=== PATIENT | female | born 1975 | race Caucasian/White ===

== ENCOUNTER → 2016-05-05 | Outpatient (REF) | payer OTHER ==
[2016-05-05 17:09] LABS: FREE T4 1.11 NG/DL (0.76-1.46)
== END | disposition home or self-care (01) ==
LOC: M SFHCCLAY 09:56
PROVIDERS: ATTEND Family Medicine
DX: E03.9 Hypothyroidism, unspecified (principal)

== ENCOUNTER → 2016-05-07 | Outpatient (REF) | payer OTHER ==
[2016-05-07 11:35] LABS: BASO % 0.3 % (0.0-1.0); EOS # 0.1 K/mm3 (0.0-0.50); EOS % 2.1 % (0.0-3.0); LARGE UNSTAINED CELL # 0.1 K/mm3 (0.0-0.4); LARGE UNSTAINED CELL % 1.7 % (0.0-4.0); LYMPH # 1.1 K/mm3 (1.5-4.5); LYMPH % 30.2 % (24.0-44.0); MEAN CORPUSCULAR HEMOGLOBIN 30.9 pg (27.0-33.0); MEAN CORPUSCULAR HGB CONC 34.3 g/dl (32.0-36.5); MEAN CORPUSCULAR VOLUME 89.9 fl (80.0-96.0); MONO # 0.2 K/mm3 (0.0-0.8); MONO % 4.3 % (0.0-5.0); NEUTROPHILS # 2.3 K/mm3 (1.8-7.7); NEUTROPHILS % 61.3 % (36.0-66.0); PLATELET COUNT, AUTOMATED 199 k/mm3 (150-450); WHITE BLOOD COUNT 3.8 K/mm3 (4.0-10.0)
== END | disposition home or self-care (01) ==
LOC: M SFHCCLAY 09:16
PROVIDERS: ATTEND Family Medicine
DX: R53.83 Other fatigue (principal)

== ENCOUNTER → 2016-07-20 | Outpatient (REF) | payer OTHER ==
[2016-07-20 18:37] LABS: FREE T4 0.53 NG/DL (0.76-1.46)
== END ==
LOC: M SFHCCLAY 09:34
PROVIDERS: ATTEND Family Medicine
DX: R53.83 Other fatigue (principal); E03.9 Hypothyroidism, unspecified

== ENCOUNTER → 2016-07-28 | Outpatient (REF) | payer OTHER | LOC: M SFHCCLAY 10:53 | PROVIDERS: ATTEND Family Medicine | DX: Z12.4 Encounter for screening for malignant neoplasm of cervix (principal); Z72.51 High risk heterosexual behavior | CPT/HCPCS: 87070; G0123 ==

== ENCOUNTER → 2019-04-06 | Outpatient (REF) | payer MEDICAID ==
[2019-04-06 13:14] LABS: FREE T4 0.32 NG/DL (0.76-1.46)
== END ==
LOC: M SFHCCLAY 09:19
PROVIDERS: ATTEND Family Medicine
DX: E03.9 Hypothyroidism, unspecified (principal)

== ENCOUNTER → 2019-05-22 | Outpatient (REF) | payer MEDICAID ==
[2019-05-22 18:25] LABS: FREE T4 1.09 NG/DL (0.76-1.46); THYROID STIMULATING HORMONE 24.9 uIU/ML (0.358-3.740)
== END ==
LOC: M SFHCCLAY 10:43
PROVIDERS: ATTEND Family Medicine
DX: E03.9 Hypothyroidism, unspecified (principal)

== ENCOUNTER → 2019-06-23 | Outpatient (REF) | payer OTHER, MEDICAID ==
[2019-06-23 14:50] LABS: FREE T4 0.7 NG/DL (0.76-1.46); THYROID STIMULATING HORMONE 72.1 uIU/ML (0.358-3.740)
== END ==
LOC: M SFHCCLAY 08:50
PROVIDERS: ATTEND Family Medicine
DX: R63.1 Polydipsia (principal); E03.9 Hypothyroidism, unspecified

== ENCOUNTER → 2019-09-08 | Outpatient (CLI) | payer OTHER ==
--- NOTE | 2019-09-08 13:06 | REPMRS ---
Patient History The patient states she had a clinical breast exam in Mar 2019.Family history of colorectal cancer at age 56 in maternal grandmother. Digital Woman Screen Mammo: September 08, 2019 - Exam #: [id number] Bilateral CC and MLO view(s) were taken. Technologist: Bonnie Cain, Technologist No prior studies available for comparison. FINDINGS: The breast tissue is extremely dense which could obscure a lesion on mammography. The Volpara volumetric breast density category is: D. There is a fairly symmentric extremely dense fibroglandular pattern in the breast parenchyma. There is no evidence of dominant mass, architectural distortion, or grouped microcalcification typical of malignancy. 3-D tomosynthesis shows no additional findings. Assessment: BI-RADS/ACR category 1 mammogram. Negative Mammogram. Recommendation Routine screening mammogram of both breasts in 1 year (for women over age 40). This patient's Lifetime Breast Cancer RIsk is estimated at 10.0 %. This mammogram was interpreted with the aid of an FDA-approved computer-aided dectection system. Electronically Signed By: Harshad Cisneros MD 09/08/19 [id number]
== END ==
LOC: M WHC 12:21
PROVIDERS: ATTEND Family Medicine
DX: Z12.39 Encounter for other screening for malignant neoplasm of breast (principal)

== ENCOUNTER → 2020-04-30 | Outpatient (REF) | payer OTHER ==
[2020-04-30 16:55] LABS: FREE T4 0.79 NG/DL (0.76-1.46); THYROID STIMULATING HORMONE 92.1 uIU/ML (0.358-3.740)
== END ==
LOC: M SFHCCLAY 09:32
PROVIDERS: ATTEND Family Medicine
DX: E03.9 Hypothyroidism, unspecified (principal)

== ENCOUNTER → 2020-07-04 | Outpatient (REF) | payer OTHER ==
[2020-07-04 12:12] LABS: FREE T4 0.78 NG/DL (0.76-1.46); THYROID STIMULATING HORMONE 65.1 uIU/ML (0.358-3.740)
== END ==
LOC: M SFHCCLAY 08:47
PROVIDERS: ATTEND Family Medicine
DX: E03.9 Hypothyroidism, unspecified (principal)

== ENCOUNTER → 2020-09-16 | Outpatient (REF) | payer OTHER ==
[2020-09-16 12:42] LABS: FREE T4 0.87 NG/DL (0.76-1.46); THYROID STIMULATING HORMONE 46.7 uIU/ML (0.358-3.740)
== END ==
LOC: M SFHCCLAY 08:17
PROVIDERS: ATTEND Family Medicine
DX: E03.9 Hypothyroidism, unspecified (principal)

== ENCOUNTER → 2020-12-13 | Outpatient (REF) | payer OTHER ==
[2020-12-13 13:38] LABS: FREE T4 0.33 NG/DL (0.76-1.46)
== END ==
LOC: M SFHCCLAY 08:41
PROVIDERS: ATTEND Family Medicine
DX: E03.9 Hypothyroidism, unspecified (principal)

== ENCOUNTER 2021-01-16 11:48 | Observation (INO) | payer OTHER ==
[~2021-01-16] VITALS: Ht 162.6 cm; Wt 84.5 kg
--- NOTE | 2021-01-16 12:14 | REP ---
INDICATION: CHEST PAIN. COMPARISON: None. TECHNIQUE: Single portable AP view of the chest was performed. FINDINGS: There is no acute infiltrate or pulmonary edema. Lungs are clear. The heart is not significantly enlarged. The mediastinal silhouette is unremarkable. The visualized osseous structures are intact. IMPRESSION: No acute pulmonary disease. <Electronically signed by Philip Cantu > 01/16/21 [id number]
[2021-01-16 12:18] LABS: BASO % 0.1 % (0.0-1.0); EOS % 0.4 % (0.0-3.0); HEMATOCRIT 33.8 % (36.0-47.0); HEMOGLOBIN 11.5 g/dl (12.0-15.5); MEAN CORPUSCULAR HEMOGLOBIN 31.4 pg (27.0-33.0); MEAN CORPUSCULAR VOLUME 92.3 fl (80.0-96.0); MONO # 0.5 10^3/uL (0.0-0.8); MONO % 6.7 % (2.0-8.0); NEUTROPHILS # 5.2 10^3/uL (1.5-8.5); NEUTROPHILS % 77.5 % (36.0-66.0); PLATELET COUNT, AUTOMATED 192 10^3/uL (150-450); RED BLOOD COUNT 3.66 10^6/uL (4.00-5.40); WHITE BLOOD COUNT 6.7 10^3/uL (4.0-10.0)
[2021-01-16 12:38] LABS: BLOOD UREA NITROGEN 9 MG/DL (7-18); CALCIUM LEVEL 9.2 MG/DL (8.5-10.1); CARBON DIOXIDE LEVEL 26 MEQ/L (21-32); CHLORIDE LEVEL 109 MEQ/L (98-107); CK-MB VALUE MASS < 1.0 NG/ML (<3.6); CPK CREATINE PHOSPHOKINASE 37 U/L (26-192); CREATININE FOR GFR 0.57 MG/DL (0.55-1.30); GLOMERULAR FILTRATION RATE > 60.0 (>58); GLUCOSE, FASTING 92 MG/DL (70-100); SODIUM LEVEL 142 MEQ/L (136-145); TROPONIN I < 0.02 NG/ML (< 0.10)
[2021-01-16] MEDS ORDERED: ISOVUE-370 76% 100ML VIAL As Ordered ONE (12:55)
--- NOTE | 2021-01-16 14:01 | REP ---
INDICATION: rule out PE. COMPARISON: None. TECHNIQUE: CT angiogram chest performed following the intravenous administration of 100 cc of Isovue 370. Sagittal and coronal reconstruction images are performed. FINDINGS: Lungs: There is patchy bibasilar atelectasis/infiltrate. Mediastinum: No adenopathy. Pulmonary arteries: Pulmonary emboli are seen in 2 segmental branches in the left lower lobe. There is also pulmonary embolism in a segmental branch of the posterior right lower lobe. [place]: No adenopathy. Axilla: No adenopathy. Pleura: There is a small left pleural effusion. Heart: Not enlarged. Thoracic aorta: No aneurysm or dissection. Upper abdominal structures: Unremarkable. Visualized osseous structures: There are mild degenerative changes of the spine. IMPRESSION: Pulmonary emboli are seen in 2 segmental branches in the left lower lobe. There is also pulmonary embolism in a segmental branch of the posterior right lower lobe. Mild patchy bibasilar atelectasis/infiltrate. Small left pleural effusion. <Electronically signed by Philip Cantu > 01/16/21 [id number]
[2021-01-16] MEDS ORDERED: MORPHINE 2 MG/ML 1ML VIAL (J2270) IV ONE (14:35)
[2021-01-16 15:33] LABS: NT-PRO BNP 139 PG/ML (<125)
[2021-01-16] MEDS ORDERED: PRAMIPEXOLE 0.25 MG TAB PO PRN (16:05)
[2021-01-16] MEDS ORDERED: MAALOX 30 ML SUSP *UDC PO PRN (16:05)
[2021-01-16] MEDS ORDERED: hydrOXYzine 25 MG TAB PO PRN (16:05)
[2021-01-16] MEDS ORDERED: ACETAMINOPHEN TAB 650MG DOSE (2X325MG) PO PRN (16:05)
[2021-01-16] MEDS ORDERED: MOM 30ML SUSPENSION UDC PO PRN (16:05)
[2021-01-16] MEDS ORDERED: VITMTA PO (16:08)
[2021-01-16] MEDS ORDERED: SYNT300T2 PO ×2 (16:08)
[2021-01-16] MEDS ORDERED: MIRA0.254 PO (16:08)
[2021-01-16] MEDS ORDERED: HYDR-3363 PO (16:08)
[2021-01-16] MEDS ORDERED: HOME MED LIST COMPLETE! XX SCH (16:10)
[2021-01-16 16:22] LABS: RSV AMPLIFICATION NEGATIVE (NEGATIVE)
--- NOTE | 2021-01-16 16:50 | HPEPDOC ---
[facility] Medical History & Physical Date of Admission Jan 16, 2021 Date of Service: Jan 16, 2021 Attending Physician: JESICA LARA MD History and Physical CHIEF COMPLAINT: 45-year-old female with a chief complaint of shortness of breath and chest pain with breathing HISTORY OF PRESENT ILLNESS: Patient states symptoms began last night when she was sitting on the couch watching TV and got more severe with time and graduated to a stabbing pain with breathing. The pain also radiated to the patient's center of her left back and up to her neck. Patient said that the pain and breathing was worse when she laid on her left and she was able to get some sleep when she laid on her right. She took 600 mg ibuprofen this morning which helped her be able to drive to [facility] where an EKG was done and concerning to providers there. They then transferred her here to the [facility] in [place]. She denies ever taking blood thinners and being told that she has a bleeding condition. Patient has denied any prolonged immobility or the use of any OCPs. PAST MEDICAL HISTORY: 1. Hypothyroid. 2. Restless leg. 3. Spontaneous vaginal deliveries x3. PAST SURGICAL HISTORY: 1. Hysterectomy 2013. 2. Cholecystectomy 2001. SOCIAL HISTORY: Marital status: . Children: 3 Tobacco use:Per patient stopped smoking cigarettes 2 weeks ago; began smoking cigarettes at 17 and smoked half a pack a day. Now vapes as frequently as she would smoking cigarettes ETOH: Denies Illicit drug use: Denies Tattoos done unprofessionally: Done by herself and her (unaware if they got them done in a licensed establishment however). IV drug use: Denies Other relevant social factors: None FAMILY HISTORY: Father: , at 82 years of age due to ALS Mother: Alive, 77 years old has COPD, osteoporosis, heart issue (possible clot at one point but was never worked up or found) Siblings: Has a brother with high blood pressure Children: 3 Hereditary Diseases: None that patient is aware of including any known bleeding/clotting disorders ALLERGIES: Please see below. 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 CARDIOVASCULAR: Reports chest pain with breathing; has been told in the past that she has a low heart rate but unsure what the rate was. RESPIRATORY: Reports chest pain with breathing and shortness of breath; denies sore throat, chest congestion, cough GASTROINTESTINAL: Denies nausea, vomiting, diarrhea. GENITOURINARY: Denies dysuria, hematuria. MUSCULOSKELETAL: Reports pleuritic chest pain with breathing and pain radiating around to her middle of her left back radiating up to her neck; denies lower extremity swelling. NEUROLOGICAL: Denies headaches, dizziness. HOME MEDICATIONS: Please see below. PHYSICAL EXAMINATION: VITAL SIGNS: See below GENERAL APPEARANCE: 45-year-old female, lying in bed, anxious, in no acute distress. HEENT: Head normocephalic/atraumatic. CARDIOVASCULAR: Regular rate and rhythm, no murmurs, no. LUNGS: Clear to auscultation bilaterally but patient was taking short breaths to avoid chest pain. ABDOMEN: Normoactive bowel sounds, nontender to palpation. EXTREMITIES: No edema noted in lower extremities, normal capillary refill, 2+ radial and pedal pulses bilaterally. PSYCHIATRIC: Alert and oriented x4 LABORATORY DATA: See below. IMAGING: Chest x-ray 01/16/2021: Showed no acute pulmonary disease CT angiogram 01/16/2021: Pulmonary emboli seen into segmental branches in the left lower lobe. Pulmonary embolism in the segmental branch of the posterior right lower lobe. Mild patchy bibasilar atelectasis/infiltrate. Small left pleural effusion MICROBIOLOGY: Please see below. ASSESSMENT: Patient is a 45-year-old female who presented to the [facility] ED with chest pain shortness of breath and pain with breathing. She was first seen at [facility] and transferred here. Pain has been going on since yesterday. CT angiogram showed evidence of multiple PEs. PLAN: 1. Pleuritic chest pain likely secondary to low-risk pulmonary emboli, less likely 2/2 sub-massive PE -CT angiogram shows multiple PEs in the right and left lungs -Unlikely pneumothorax due to midline trachea on imaging -Unlikely ACS due to to patient being hemodynamically stable and normal troponins at this time and atypical chest pain -Will trend troponins every 6 hours until noon tomorrow -EKG showed sinus rhythm with marked sinus arrhythmia -Unlikely heart failure due to no apparent swelling and other absent physical exam finding. The BNP has been ordered -Echocardiogram has been ordered to examine heart for any structural defects -Tylenol 650 every 6 hours for mild pain -Oxycodone acetaminophen 53 25 every 6 hours for moderate to severe pain -Anticoagulation -Eliquis 10 mg twice daily for the next 7 days Respiratory distress -Titrate O2 as needed to keep above 94% -Incentive spirometry order to encourage positive airflow and full expansion of lungs Hypothyroidism - c/w Levothyroxine RLS DVT prophylaxis - c/w Full anticoagulation with Eliquis Vital Signs Vital Signs Date Time Temp Pulse Resp B/P (MAP) Pulse Ox O2 Delivery O2 Flow Rate FiO2 01/16/21 15:37 20 01/16/21 14:03 76 97 01/16/21 14:00 120/57 (78) 01/16/21 12:12 Room Air 01/16/21 12:02 98.4 Laboratory Data Labs 24H Laboratory Tests 2 01/16/21 12:03: Immature Granulocyte % (Auto) 0.3, Neutrophils (%) (Auto) 77.5H, Lymphocytes (%) (Auto) 15.0L, Monocytes (%) (Auto) 6.7, Eosinophils (%) (Auto) 0.4, Basophils (%) (Auto) 0.1, Neutrophils # (Auto) 5.2, Lymphocytes # (Auto) 1.0L, Monocytes # (Auto) 0.5, Eosinophils # (Auto) 0.0, Basophils # (Auto) 0.0, Nucleated Red Blood Cells % (auto) 0.0, Anion Gap 7L, Glomerular Filtration Rate > 60.0, Calcium Level 9.2, Total Creatine Kinase 37, Creatine Kinase MB < 1.0, Creatine Kinase MB Relative Index 2.70, Troponin I < 0.02, DO-Geb-W-Type Natriuretic Peptide 139H 01/16/21 15:35: Urine Color YELLOW, Urine Appearance CLEAR, Urine pH 6.0, Urine Specific [place] 1.033, Urine Protein NEGATIVE, Urine Glucose (UA) NEGATIVE, Urine Ketones 1+H, Urine Blood NEGATIVE, Urine Nitrite NEGATIVE, Urine Bilirubin NEGATIVE, Urine Urobilinogen 0.2, Urine Leukocyte Esterase NEGATIVE, Urine WBC (Auto) 1, Urine RBC (Auto) 2, Urine Hyaline Casts (Auto) 0, Urine Bacteria (Auto) NEGATIVE, Urine Squamous Epithelial Cells 5, Urine Sperm (Auto) , Coronavirus (COVID- 19)(PCR) NEGATIVE, Influenza Type A (RT-PCR) NEGATIVE, Influenza Type B (RT-PCR) NEGATIVE, Respiratory Syncytial Virus (PCR) NEGATIVE CBC/BMP Laboratory Tests 01/16/21 12:03 Home Medications Scheduled Levothyroxine Sodium (Synthroid) 300 Mcg Tablet, 1,800 MCG PO QWEEK TUESDAYS Multivitamins (Thera M Plus Tablet) 1 Each Tablet, 1 TAB PO DAILY Scheduled PRN Hydroxyzine HCl (Hydroxyzine HCl) 25 Mg Tablet, 25 MG PO Q8H PRN for ANXIETY Pramipexole Di-HCl (Mirapex) 0.25 Mg Tablet, 0.25 MG PO QHS PRN for RESTLESS LEGS Allergies Coded Allergies: No Known Allergies (Verified , 12/22/07) A-FIB/CHADSVASC A-FIB History Current/History of A-Fib/PAF?: No GME ATTESTATION GME ATTESTATION My faculty preceptor for this patient encounter was physically present during the encounter and was fully available. All aspects of the patient interview, examination, medical decision making process, and medical care plan development were reviewed and approved by the faculty preceptor. The faculty preceptor is aware and concurs with the plan as stated in the body of this note and will attest to such by his/her cosignature. ATTENDING NOTE I, Jesica Laar, have independently examined this patient and performed my own physical exam, as well as reviewed the documentation and edited where necessary. I have discussed in detail with the resident / student the findings and plan of treatment as documented by the resident / student and edited their note. I agree with their findings and treatment plan and have edited their documentation. I will continue to follow the patient during this hospital stay. Munir Dee DO Jan 16, 2021 16:50 JESICA LARA MD Jan 16, 2021 20:49
[2021-01-16 18:08] LABS: HEMATOCRIT 35.3 % (36.0-47.0); HEMOGLOBIN 12.1 g/dl (12.0-15.5); MEAN CORPUSCULAR HEMOGLOBIN 31.3 pg (27.0-33.0); MEAN CORPUSCULAR HGB CONC 34.3 g/dl (32.0-36.5); MEAN CORPUSCULAR VOLUME 91.2 fl (80.0-96.0); PLATELET COUNT, AUTOMATED 190 10^3/uL (150-450); RED BLOOD COUNT 3.87 10^6/uL (4.00-5.40); WHITE BLOOD COUNT 7.5 10^3/uL (4.0-10.0)
[2021-01-16 18:19] LABS: INR 0.94
[2021-01-16 18:20] LABS: PARTIAL THROMBOPLASTIN TIME 27.6 SECONDS (25.9-37.0)
[2021-01-16 18:42] LABS: ALBUMIN 3.6 GM/DL (3.2-5.2); ALT/SGPT 76 U/L (12-78); BILIRUBIN,DIRECT 0.2 MG/DL (0.0-0.2); BILIRUBIN,TOTAL 0.7 MG/DL (0.2-1.0); BLOOD UREA NITROGEN 8 MG/DL (7-18); CARBON DIOXIDE LEVEL 28 MEQ/L (21-32); CHLORIDE LEVEL 107 MEQ/L (98-107); CREATININE FOR GFR 0.54 MG/DL (0.55-1.30); GLOMERULAR FILTRATION RATE > 60.0 (>58); GLUCOSE, FASTING 93 MG/DL (70-100); POTASSIUM SERUM 4.2 MEQ/L (3.5-5.1); SODIUM LEVEL 141 MEQ/L (136-145); TROPONIN I < 0.02 NG/ML (< 0.10)
[2021-01-16 19:03] VITALS: BP 111/69
--- NOTE | 2021-01-16 19:16 | ECHO ---
ECHOCARDIOGRAM DATE OF PROCEDURE: 01/16/2021 Age: 45 Gender: Female Height: 64 inches Weight: 180 pounds Body Surface Area: 1.88 m2 PATIENT LOCATION: Inpatient, currently in the emergency room. REFERRING PHYSICIAN: Jesica Jensen M.D. INDICATION: Chest pain. MEASUREMENTS: 2D Measurements: RV - 2.6 cm LV - 4.6 cm Septum 0.9 cm Posterior wall 0.9 cm Aortic root 3.0 cm LA - 3.0 cm LVEF 65% Doppler Measurements: AV - 1.12 m/sec LVOT - 1.0 m/sec LVOT diameter 1.9 cm MV-E 82, A 52, EA ratio 1.6 Early mitral deceleration time 225 msec E prime medial 12 A prime medial 11 E prime lateral 12 PV - 0.9 m/sec Pulmonary artery acceleration time 110 msec RVSP 28 mmHg IVC - 1.0 cm COMMENTS: Normal sinus rhythm without intraventricular conduction disturbance. M-mode and 2-dimensional echocardiography was performed with pulse, continuous wave, color flow and tissue Doppler studies. Normal left ventricular size, wall thickness and wall motion. Normal left atrial size and Doppler assessment of left ventricular (LV) diastolic function and estimated mean left atrial pressure. Normal right heart chamber sizes and motion and estimated pulmonary arterial pressure. Reduced inferior vena cava (IVC) size that readily collapses in keeping with a relatively low central venous pressure within normal limits. Normal aortic dimensions. Normal appearing and functioning valve. Normal appearing mitral valvular apparatus with adequate excursion and no posterior systolic buckling. Trace insufficiency. Normal appearing tricuspid valve with very mild insufficiency. No apparent intracardiac mass. Miniscule, physiologic pericardial fluid posteriorly.
[2021-01-16] MEDS: APIXABAN 5 MG TAB (ELIQUIS) PO SCH (19:51)
[2021-01-16] MEDS: PERCOCET 5MG/325MG TAB PO PRN (19:53)
[2021-01-16 20:00] VITALS: BP 116/76
[2021-01-17] VITALS: BP 126/58
--- NOTE | 2021-01-17 00:14 | ECGEPIP ---
[facility] - ED Test Date: 2021-01-16 Pat Name: LAMBERTO DARNELL Department: Room: [place] [address] Gender: Female Telephone Service Representative: DAVIDA : 1975 Requested By: RYAN Sylvester Order Number: [id number] Reading MD: Matthew Card Measurements Intervals [place] Rate: 68 P: 75 LA: 172 QRS: 59 QRSD: 80 T: 54 QT: 364 QTc: 387 Interpretive Statements Sinus rhythm with marked sinus arrhythmia NO PRIORS FOR COMPARISON Electronically Signed on 01-17-2021 0:14:16 EDT by Matthew Card
[2021-01-17] MEDS: PERCOCET 5MG/325MG TAB PO PRN ×2 (03:27→09:21)
[2021-01-17 04:00] VITALS: BP 131/68
[2021-01-17 04:04] LABS: BASO % 0.2 % (0.0-1.0); EOS # 0.1 10^3/uL (0.0-0.5); EOS % 1.2 % (0.0-3.0); HEMATOCRIT 32.8 % (36.0-47.0); HEMOGLOBIN 11.2 g/dl (12.0-15.5); LYMPH # 1.1 10^3/uL (1.5-5.0); LYMPH % 21.9 % (24.0-44.0); MEAN CORPUSCULAR HGB CONC 34.1 g/dl (32.0-36.5); MEAN CORPUSCULAR VOLUME 90.9 fl (80.0-96.0); MONO # 0.5 10^3/uL (0.0-0.8); NEUTROPHILS # 3.2 10^3/uL (1.5-8.5); NEUTROPHILS % 65.5 % (36.0-66.0); PLATELET COUNT, AUTOMATED 192 10^3/uL (150-450); RED BLOOD COUNT 3.61 10^6/uL (4.00-5.40); WHITE BLOOD COUNT 4.8 10^3/uL (4.0-10.0)
[2021-01-17 04:33] LABS: ALBUMIN 3.2 GM/DL (3.2-5.2); ALT/SGPT 74 U/L (12-78); BILIRUBIN,TOTAL 0.5 MG/DL (0.2-1.0); BLOOD UREA NITROGEN 8 MG/DL (7-18); CALCIUM LEVEL 8.4 MG/DL (8.5-10.1); CARBON DIOXIDE LEVEL 30 MEQ/L (21-32); CHLORIDE LEVEL 104 MEQ/L (98-107); GLOMERULAR FILTRATION RATE > 60.0 (>58); GLUCOSE, FASTING 91 MG/DL (70-100); POTASSIUM SERUM 3.9 MEQ/L (3.5-5.1); SODIUM LEVEL 140 MEQ/L (136-145); TOTAL PROTEIN 6.5 GM/DL (6.4-8.2); TROPONIN I < 0.02 NG/ML (< 0.10)
[2021-01-17] MEDS ORDERED: MORPHINE 4 MG/ML 1ML VIAL/SYRINGE (J2270) IV ONE (05:25)
[2021-01-17] MEDS ORDERED: MORPHINE 2 MG/ML 1ML VIAL (J2270) As Ordered ONE (05:29)
[2021-01-17 07:40] VITALS: BP 95/51
[2021-01-17 07:41] VITALS: BP 102/76
[2021-01-17] MEDS ORDERED: MULTIVITAMINS/MINERALS THERAP 1 TAB PO SCH (09:00)
[2021-01-17] MEDS: APIXABAN 5 MG TAB (ELIQUIS) PO SCH (09:06)
[2021-01-17] MEDS ORDERED: ELIQ5TAB PO (10:53)
--- NOTE | 2021-01-17 11:50 | DS.PDOC ---
Discharge Summary General Date of Admission Jan 16, 2021 at 11:49 Date of Discharge Jan 17, 2021 Primary Care Physician: JAZMIN CERNA DO Attending Physician: JESICA JENSEN MD Discharge Summary PROCEDURES PERFORMED DURING STAY: [None]. ADMITTING DIAGNOSES: 1. Pleuritic chest pain likely 2/2 bilateral pulmonary emboli. 2. Restless leg syndrome 3. Hypothyroidism DISCHARGE DIAGNOSES: 1. Pleuritic chest pain likely 2/2 bilateral pulmonary emboli (unprovoked, low- risk). 2. Restless leg syndrome 3. Hypothyroidism COMPLICATIONS/CHIEF COMPLAINT: Bilateral Pulmonary Embolism. HISTORY OF PRESENT ILLNESS: This is a 45 year old woman who presented to the [facility] ER on the instructions of the [facility] clinic after an abnormal EKG there. She has a history of Restless Leg Syndrome and Hypothyroidism. Her CC in the [facility] ER is SOB and dyspnea that developed suddenly 1d ago and gradually got worse over time. There was no event that the patient feels directly preceded the pain, she states she was sitting on her couch when the pain came on suddenly. The pain radiates to the center of her left back and up to her neck. She took 600mg ibuprofen which gave her mild improvement. Per patient, she has never been on blood thinners, been told she has a bleeding disorder, had recent trauma, prolonged immobility, or currently uses and OCPs (Hysterectomy 2013, ovaries and fallopian tubes spared). In the ER she had a CTA that showed Pulmonary emboli are seen in 2 segmental branches in the left lower lobe. There is also pulmonary embolism in a segmental branch of the posterior right lower lobe. Mild patchy bibasilar atelectasis/infiltrate. Small left pleural effusion. She was then admitted to the hospitalist service for observation, pain control and initiation of blood thinner. HOSPITAL COURSE: Patient was admitted to the hospital service for further evaluation and treatment. She was started on Eliquis for her PE. Patient was started on pain control with Percocet. Overnight she did experience breakthrough pain requiring morphine. Since that point. She's been relatively comfortable and continues to u se her incentive spirometer workup including troponin trend BNP and echocardiogram have been relatively normal. She's been provided instructions follow with primary care provider within the next 7 days. Patient is given instructions to continue with Eliquis loading for the next 6 days, then continue with Eliquis twice a day dosing for maintenance. She denies fever, chills, night sweats, dizziness, cough, N/V/D, dysuria, hematuria or hx of Covid She clarifies that her hysterectomy was 2/2 structural changes post- that caused her dyspareunia and hx of endometriosis. She denies hx of recurrent spontaneous abortions. Patient remained stable overnight and will be discharged to home today (01/17/21) and follow up with her PCP as soon as possible. She has also been instructed to stop vaping. DISCHARGE MEDICATIONS: Please see below. ALLERGIES: Please see below. PHYSICAL EXAMINATION ON DISCHARGE: VITAL SIGNS: Please see below. GENERAL: Sitting in bed, mildly shallow breathing, pleasant and cooperative HEENT: NC/AT, PERRLA, EOMI, sclera clear, hearing grossly intact, pharynx pink and non-edematous, nares patent NECK: Non-tender, no obvious lymphadenopathy CARDIOVASCULAR EXAMINATION: RRR, no obvious murmur, cap refill <2s, radial pulses +2 RESPIRATORY EXAMINATION: CTA bilaterally, some mild shallow breathing noted, faint breath sounds at bilateral bases likely due to 2/2 pleuritic chest pain ABDOMINAL EXAMINATION: Non-tender to palpation, BS present and normoactive EXTREMITIES: No obvious edema in all extremities, BIOINFORMATICS ASSOCIATE and DPA pulses present and +2 bilaterally NEUROLOGICAL EXAMINATION: CN II-XII grossly intact PSYCHIATRIC EXAMINATION: Appropriate mood and affect LABORATORY DATA: Please see below. IMAGING: CXR single view, portable Impression: No acute pulmonary disease. CTA chest performed following IV administration of 100cc Isovue 370 Impression: Pulmonary emboli are seen in 2 segmental branches in the left lower lobe. There is also pulmonary embolism in a segmental branch of the posterior right lower lobe. Mild patchy bibasilar atelectasis/infiltrate. Small left pleural effusion. Echocardiogram: Normal sinus rhythm without intraventricular conduction disturbance. M-mode and 2-dimensional echocardiography was performed with pulse, continuous wave, color flow and tissue Doppler studies. Normal left ventricular size, wall thickness and wall motion. Normal left atrial size and Doppler assessment of left ventricular (LV) diastolic function and estimated mean left atrial pressure. Normal right heart chamber sizes and motion and estimated pulmonary arterial pressure. Reduced inferior vena cava (IVC) size that readily collapses in keeping with a relatively low central venous pressure within normal limits. Normal aortic dimensions. Normal appearing and functioning valve. Normal appearing mitral valvular apparatus with adequate excursion and no posterior systolic buckling. Trace insufficiency. Normal appearing tricuspid valve with very mild insufficiency. No apparent intracardiac mass. Miniscule, physiologic pericardial fluid posteriorly. PROGNOSIS: Good ACTIVITY: [As tolerated]. DIET: As tolerated DISPOSITION: Home and self-care DISCHARGE INSTRUCTIONS AND ITEMS TO FOLLOWUP ON ON OUTPATIENT: Stop vaping. Take Eliquis as directed (very important that this is done). Continue home medications as directed. Follow-up with Dr. Cerna within 1 week. Continue incentive spirometry to encourage positive lung flow and expansion. Chest pain if presenting symptoms of chest pain and shortness of breath return and/or acutely worsen please immediately return to the ED for further management and evaluation. Thank you for allowing us to be part of your care. DISCHARGE CONDITION: [Stable]. TIME SPENT ON DISCHARGE: 45 minutes. Vital Signs/I&Os Vital Signs Date Time Temp Pulse Resp B/P (MAP) Pulse Ox O2 Delivery O2 Flow Rate FiO2 01/17/21 09:21 20 Room Air 01/17/21 07:41 102/76 (85) 01/17/21 07:40 97.0 76 97 I&O- Last 24 Hours up to 6 AM 01/17/21 06:00 Intake Total 350 ml Output Total 200 ml Balance 150 ml Laboratory Data Labs 24H Laboratory Tests 2 01/16/21 12:03: Immature Granulocyte % (Auto) 0.3, Neutrophils (%) (Auto) 77.5H, Lymphocytes (%) (Auto) 15.0L, Monocytes (%) (Auto) 6.7, Eosinophils (%) (Auto) 0.4, Basophils (%) (Auto) 0.1, Neutrophils # (Auto) 5.2, Lymphocytes # (Auto) 1.0L, Monocytes # (Auto) 0.5, Eosinophils # (Auto) 0.0, Basophils # (Auto) 0.0, Nucleated Red Blood Cells % (auto) 0.0, Anion Gap 7L, Glomerular Filtration Rate > 60.0, Calcium Level 9.2, Total Creatine Kinase 37, Creatine Kinase MB < 1.0, Creatine Kinase MB Relative Index 2.70, Troponin I < 0.02, OD-Egb-H-Type Natriuretic Peptide 139H 01/16/21 15:35: Urine Color YELLOW, Urine Appearance CLEAR, Urine pH 6.0, Urine Specific [place] 1.033, Urine Protein NEGATIVE, Urine Glucose (UA) NEGATIVE, Urine Ketones 1+H, Urine Blood NEGATIVE, Urine Nitrite NEGATIVE, Urine Bilirubin NEGATIVE, Urine Urobilinogen 0.2, Urine Leukocyte Esterase NEGATIVE, Urine WBC (Auto) 1, Urine RBC (Auto) 2, Urine Hyaline Casts (Auto) 0, Urine Bacteria (Auto) NEGATIVE, Urine Squamous Epithelial Cells 5, Urine Sperm (Auto) , Coronavirus (COVID- 19)(PCR) NEGATIVE, Influenza Type A (RT-PCR) NEGATIVE, Influenza Type B (RT-PCR) NEGATIVE, Respiratory Syncytial Virus (PCR) NEGATIVE 01/16/21 17:54: Nucleated Red Blood Cells % (auto) 0.0, Anion Gap 6L, Glomerular Filtration Rate > 60.0, Calcium Level 9.0, Troponin I < 0.02, Prothrombin Time 13.0, Prothromb Time International Ratio 0.94, Activated Partial Thromboplast Time 27.6, Total Bilirubin 0.7, Direct Bilirubin 0.2, Aspartate Amino Transf (AST/SGOT) 33, Alanine Aminotransferase (ALT/SGPT) 76, Alkaline Phosphatase 95, Total Protein 7.0, Albumin 3.6, Albumin/Globulin Ratio 1.1L 01/16/21 23:21: Troponin I < 0.02 01/17/21 03:19: Immature Granulocyte % (Auto) 0.2, Neutrophils (%) (Auto) 65.5, Lymphocytes (%) (Auto) 21.9L, Monocytes (%) (Auto) 11.0H, Eosinophils (%) (Auto) 1.2, Basophils (%) (Auto) 0.2, Neutrophils # (Auto) 3.2, Lymphocytes # (Auto) 1.1L, Monocytes # (Auto) 0.5, Eosinophils # (Auto) 0.1, Basophils # (Auto) 0.0, Nucleated Red Blood Cells % (auto) 0.0, Anion Gap 6L, Glomerular Filtration Rate > 60.0, Calcium Level 8.4L, Magnesium Level 2.0, Total Bilirubin 0.5, Aspartate Amino Transf (AST/SGOT) 37, Alanine Aminotransferase (ALT/SGPT) 74, Alkaline Ph osphatase 94, Troponin I < 0.02, Total Protein 6.5, Albumin 3.2, Albumin/Globulin Ratio 1.0L CBC/BMP Laboratory Tests 01/16/21 12:03 01/16/21 17:54 01/17/21 03:19 Discharge Medications Scheduled Apixaban (Eliquis) 5 Mg Tablet, 10 MG PO BID Take 10mg (2tabs) PM of Jan 17; Take 10mg (2tabs) BID from Jan 18-; take 10mg (2tabs) once morning of Jan 23 Apixaban (Eliquis) 5 Mg Tablet, 5 MG PO BID On evening of Jan 23, take 5mg in PM; From Jan 24 on, take 1 tab (5mg) BID till done with Rx Levothyroxine Sodium (Synthroid) 300 Mcg Tablet, 1,800 MCG PO QWEEK, (Reported) TUESDAYS Multivitamins (Thera M Plus Tablet) 1 Each Tablet, 1 TAB PO DAILY, (Reported) Scheduled PRN Hydroxyzine HCl (Hydroxyzine HCl) 25 Mg Tablet, 25 MG PO Q8H PRN for ANXIETY, (Reported) Pramipexole Di-HCl (Mirapex) 0.25 Mg Tablet, 0.25 MG PO QHS PRN for RESTLESS LEGS, (Reported) Allergies Coded Allergies: No Known Allergies (Verified , 12/22/07) GME ATTESTATION GME ATTESTATION My faculty preceptor for this patient encounter was physically present during the encounter and was fully available. All aspects of the patient interview, examination, medical decision making process, and medical care plan development were reviewed and approved by the faculty preceptor. The faculty preceptor is aware and concurs with the plan as stated in the body of this note and will attest to such by his/her cosignature. ATTENDING NOTE I, Jesica Jensen, have independently examined this patient and performed my own physical exam, as well as reviewed the documentation and edited where necessary. I have discussed in detail with the resident / student the findings and plan of treatment as documented by the resident / student and edited their note. I agree with their findings and treatment plan and have edited their documentation. I will continue to follow the patient during this hospital stay. Munir Dee DO Jan 17, 2021 11:50 JESICA JENSEN MD Jan 17, 2021 13:38
[2021-01-17 12:00] VITALS: BP 117/66
[2021-01-21] MEDS ORDERED: LEVOTHYROXINE 150MCG TABLET (0.15MG) PO SCH (06:00)
== END 2021-01-17 12:03 | disposition home or self-care (01) ==
LOC: EDBD 11:48 → M ED 11:48 → M ED INP 11:49 → M PCU 18:47
PROVIDERS: ADMIT Internal Medicine; ATTEND Internal Medicine
DX: I26.94 Multiple subsegmental thrombotic pulmonary emboli without acute cor pulmonale (principal); R07.1 Chest pain on breathing; G25.81 Restless legs syndrome; E03.9 Hypothyroidism, unspecified; R06.03 Acute respiratory distress; F17.290 Nicotine dependence, other tobacco product, uncomplicated; Z79.899 Other long term (current) drug therapy; Z79.01 Long term (current) use of anticoagulants
CPT/HCPCS: 36415; 71045; 71275; 80053; 81001; 82248; 82550; 82553; 83735; 83880; 85025; 85027; 85610; 85730; 87631; 93005; 93041; 93306; 94760; 96374; 96376; 99285; J2270; Q9967

== ENCOUNTER 2021-01-20 09:07 | Emergency (ER) | payer OTHER ==
[~2021-01-20] VITALS: Ht 162.6 cm; Wt 81.8 kg
[~2021-01-20 09:07] MED LIST: ELIQ5TAB PO; HYDR-3363 PO; MIRA0.254 PO; SYNT300T2 PO; VITMTA PO
[2021-01-20 09:08] VITALS: BP 121/78
[2021-01-20 11:50] LABS: BASO % 0.4 % (0.0-1.0); EOS # 0.1 10^3/uL (0.0-0.5); EOS % 0.9 % (0.0-3.0); HEMATOCRIT 35.4 % (36.0-47.0); HEMOGLOBIN 12.1 g/dl (12.0-15.5); LYMPH # 1.3 10^3/uL (1.5-5.0); LYMPH % 22.6 % (24.0-44.0); MEAN CORPUSCULAR HEMOGLOBIN 31.2 pg (27.0-33.0); MEAN CORPUSCULAR HGB CONC 34.2 g/dl (32.0-36.5); MEAN CORPUSCULAR VOLUME 91.2 fl (80.0-96.0); MONO # 0.3 10^3/uL (0.0-0.8); MONO % 4.5 % (2.0-8.0); NEUTROPHILS % 71.4 % (36.0-66.0); PLATELET COUNT, AUTOMATED 250 10^3/uL (150-450); RED BLOOD COUNT 3.88 10^6/uL (4.00-5.40); WHITE BLOOD COUNT 5.5 10^3/uL (4.0-10.0)
--- NOTE | 2021-01-20 11:54 | REP ---
INDICATION: sub-massive hemoptysis. COMPARISON: 01/16/2021 also portable TECHNIQUE: Portable FINDINGS: The technique utilized in obtaining the radiograph has magnified the cardiac silhouette and attenuated the interstitial markings. Since the last examination patchy left basilar opacities have developed partially silhouetting out the diaphragmatic surface of the left lung. There is left CP angle blunting also representing a change. The heart is not enlarged. The right lung is clear and stable. The osseous structures are stable and intact. IMPRESSION: New left lower lobe opacity suspicious for pneumonia. Since the patient reports hemoptysis consider contrast-enhanced chest CT. <Electronically signed by Delvis Young > 01/20/21 [id number]
--- NOTE | 2021-01-20 14:43 | ED PDOC ---
Post-Departure Follow-Up radiology report to Mami Mijares MD Jan 20, 2021 14:43
== END 2021-01-20 13:45 | disposition home or self-care (01) ==
LOC: M ED 09:07
DX: R04.2 Hemoptysis (principal); T45.515A Adverse effect of anticoagulants, initial encounter; Y92.89 Other specified places as the place of occurrence of the external cause; Z86.711 Personal history of pulmonary embolism; E07.9 Disorder of thyroid, unspecified; Z79.899 Other long term (current) drug therapy; Z79.890 Hormone replacement therapy; Z79.01 Long term (current) use of anticoagulants

== ENCOUNTER → 2021-01-27 | Outpatient (REF) | payer OTHER ==
[2021-01-27 13:29] LABS: FREE T4 1.33 NG/DL (0.76-1.46); THYROID STIMULATING HORMONE 0.775 uIU/ML (0.358-3.740)
== END ==
LOC: M SFHCCLAY 09:26
PROVIDERS: ATTEND Family Medicine
DX: E03.9 Hypothyroidism, unspecified (principal); I26.94 Multiple subsegmental thrombotic pulmonary emboli without acute cor pulmonale

== ENCOUNTER → 2021-02-18 | Outpatient (CLI) | payer OTHER ==
[~2021-02-18] MED LIST changes: +ISOVUE-370 76% 100ML VIAL As Ordered ONE
--- NOTE | 2021-02-18 15:34 | REP ---
INDICATION: ABNORMAL CXR COMPARISON: 01/16/2021 the only prior a CT angio chest TECHNIQUE: Standard helical technique after the intravenous administration of 100 cc Isovue 370 FINDINGS: The mediastinum and pulmonary jason are unchanged. There is no evidence of a mass or adenopathy. This examination cannot comment on the possibility of pulmonary emboli since it is a standard CT exam. There are no pleural or pericardial effusions. There is no significant change in appearance of the imaged upper abdomen or imaged osseous structures. Evaluation of the lung alanis shows the asymmetric and patchy bibasilar opacities have completely cleared on the right and almost completely cleared on the left. No new abnormal nodules, masses, or opacities have developed. IMPRESSION: Significant lung field improvement as described above. <Electronically signed by Delvis Young > 02/18/21 [id number]
== END ==
LOC: M RAD 13:54
PROVIDERS: ATTEND Family Medicine
DX: R93.89 Abnormal findings on diagnostic imaging of other specified body structures (principal)
CPT/HCPCS: 71260; Q9967

== ENCOUNTER → 2021-06-16 | Outpatient (REF) | payer OTHER ==
[~2021-06-16] MED LIST changes: -ISOVUE-370 76% 100ML VIAL As Ordered ONE
[2021-06-16 12:17] LABS: FREE T4 1.54 NG/DL (0.76-1.46); THYROID STIMULATING HORMONE 0.007 uIU/ML (0.358-3.740)
== END ==
LOC: M SFHCCLAY 08:25
PROVIDERS: ATTEND Family Medicine
DX: E03.9 Hypothyroidism, unspecified (principal)

== ENCOUNTER → 2021-09-08 | Outpatient (CLI) | payer OTHER | LOC: M WHC 14:22 | PROVIDERS: ATTEND Family Medicine | DX: R92.2 Inconclusive mammogram (principal) ==

== ENCOUNTER → 2021-09-15 | Outpatient (REF) | payer OTHER ==
[2021-09-15 17:11] LABS: FREE T4 1.24 NG/DL (0.76-1.46); THYROID STIMULATING HORMONE 0.219 uIU/ML (0.358-3.740)
== END ==
LOC: M SFHCCLAY 09:59
PROVIDERS: ATTEND Family Medicine
DX: E03.9 Hypothyroidism, unspecified (principal)

== ENCOUNTER → 2021-09-19 | Outpatient (CLI) | payer OTHER | LOC: M WHC 10:25 | PROVIDERS: ATTEND Family Medicine | DX: R92.8 Other abnormal and inconclusive findings on diagnostic imaging of breast (principal) | CPT/HCPCS: 77065; G0279 ==

== ENCOUNTER → 2021-09-30 | Outpatient (CLI) | payer OTHER ==
[~2021-09-30] MED LIST changes: +**SFHN** LIDOCAINE 1% MDV 20ML VIAL ONE; +**SFHN** SODIUM BICARBONATE 8.4% 50MEQ 50ML VIAL ONE
[2021-09-30 11:35] VITALS: BP 108/70
== END ==
LOC: M WHCPRO 10:20
PROVIDERS: ATTEND Family Medicine
DX: R92.2 Inconclusive mammogram (principal); N63.21 Unspecified lump in the left breast, upper outer quadrant